=== PATIENT | female | born 1940 | race Caucasian/White ===

== ENCOUNTER 2020-09-19 19:44 | Emergency (ER) | payer MEDICARE, OTHER ==
--- NOTE | 2020-09-19 20:40 | ED ---
General Adult HPI - General Source: patient, family Mode of arrival: wheelchair Limitations: no limitations <Gage Bustillo Serafin - Last Filed: 09/19/20 21:01> <Catalina Fitzgerald Shyanne - Last Filed: 09/19/20 23:41> - General Chief complaint: Urogenital Stated complaint: UTI Time Seen by Provider: 09/19/20 20:33 - History of Present Illness Initial comments: Dictation was produced using [employer] dictation software. please excuse any grammatical, word or spelling errors. This patient was cared for during a federal and state declared state of emergency secondary to Covid 19 Chief Complaint: 80-year-old female presents with urinary retention History of Present Illness: Patient is an 80-year-old female she has past medical history of dyslipidemia hypertension myocardial infarction. Proximal one month ago she had back surgery. The last 3-4 days patient has been struggling with urinary frequency. States that she's been also having dysuria at that time. She was seen at the emergency department in [facility]. She was found to have a urinary tract infection. Although last to 3 days she's been having urinary frequency however today she was having urinary retention. Patient states she last urinated 10 hours ago. She feels like she needs to urinate however is unable to do so. Denies any fever, chills or night sweats. She denies any abdominal or back pain. Besides some paresthesias on the soles of her feet she has no other neurologic issues since the surgery. She denies any significant back pain at this time. No saddle anesthesia. The ROS documented in this emergency department record has been reviewed and confirmed by me. Those systems with pertinent positive or negative responses have been documented in the HPI. All other systems are other negative and/or noncontributory. PHYSICAL EXAM: General Impression: Alert and oriented x3, not in acute distress HEENT: Normocephalic atraumatic, extra-ocular movements intact, pupils equal and reactive to light bilaterally, mucous membranes moist. Cardiovascular: Heart regular rate and rhythm Chest: Able to complete full sentences, no retractions, no tachypnea Abdomen: abdomen soft, no impressive superpubic fullness however there is some tenderness to the suprapubic area, non-distended, no organomegaly Musculoskeletal: Pulses present and equal in all extremities, no peripheral edema Motor: no focal deficits noted Neurological: CN II-XII grossly intact, no focal motor or sensory deficits noted, no saddle anesthesia Skin: Intact with no visualized rashes Psych: Normal affect and mood ED course: 80 y Old female presents with urinary retention. Vital signs upon arrival are within acceptable limits. Patient care signed out to Dr. Fitzgerald (Gage Bustillo) - Related Data Home Medications Medication Instructions Recorded Confirmed ALPRAZolam [Xanax] 0.125 mg PO DAILY PRN 09/19/20 09/19/20 Acetaminophen [Tylenol Arthritis] 650 mg PO Q8H PRN 09/19/20 09/19/20 Aspirin EC [Ecotrin Low Dose] 81 mg PO HS 09/19/20 09/19/20 Atorvastatin Calcium [Lipitor] 20 mg PO HS 09/19/20 09/19/20 Calcium Carbonate/Vitamin D3 1 tab PO DAILY 09/19/20 09/19/20 [Calcium 500-Vit D3 200 Tablet] Carbidopa-Levodopa 25-100 mg 2 tab PO TID 09/19/20 09/19/20 [Sinemet 25-100] Entacapone [Comtan] 200 mg PO TID 09/19/20 09/19/20 Gabapentin [Neurontin] 100 mg PO DAILY 09/19/20 09/19/20 Ipratropium [place] [Ipratropium 2 sprays EA NOSTRIL BID 09/19/20 09/19/20 [place] 0.03%] L.acidoph,Paracasei, B.lactis 1 cap PO DAILY 09/19/20 09/19/20 [Probiotic] Levothyroxine Sodium [Synthroid] 125 mcg PO DAILY 09/19/20 09/19/20 Metoprolol Tartrate [Lopressor] 12.5 mg PO BID 09/19/20 09/19/20 Multivitamins, Thera [Multivitamin 1 tab PO DAILY 09/19/20 09/19/20 (formulary)] Pantoprazole [Protonix] 40 mg PO BID 09/19/20 09/19/20 amLODIPine [Norvasc] 10 mg PO HS 09/19/20 09/19/20 polyethylene glycoL 3350 [Miralax] 17 gm PO DAILY PRN 12/04/20 12/04/20 Allergies Allergy/AdvReac Type Severity Reaction Status Date / Time amoxicillin Allergy Itching Verified 09/19/20 21:54 Review of Systems ROS Other: All systems not noted in ROS Statement are negative. <Gage Bustillo - Last Filed: 09/19/20 21:01> ROS Other: All systems not noted in ROS Statement are negative. <Catalina Fitzgerald - Last Filed: 09/19/20 23:41> ROS Statement: Those systems with pertinent positive or pertinent negative responses have been documented in the HPI. Past Medical History Past Medical History: Hyperlipidemia, Hypertension, Myocardial Infarction ([place]) Past Surgical History: Coronary Bypass/CABG Additional Past Surgical History / Comment(s): Back surgery 08/17/20 Smoking Status: Never smoker Past Alcohol Use History: None Reported Past Drug Use History: None Reported <Gage Bustillo - Last Filed: 09/19/20 21:01> General Exam Limitations: no limitations <Gage Bustillo - Last Filed: 09/19/20 21:01> Course Vital Signs 09/19/20 09/19/20 09/19/20 19:46 21:13 22:00 Temperature 97.9 F Pulse Rate 58 L 68 84 Respiratory 16 19 17 Rate Blood Pressure 109/74 160/83 153/74 O2 Sat by Pulse 99 100 98 Oximetry 09/19/20 22:52 Temperature 98.7 F Pulse Rate 85 Respiratory 19 Rate Blood Pressure 150/86 O2 Sat by Pulse 98 Oximetry Medical Decision Making - Lab Data Result diagrams: 09/19/20 20:24 09/19/20 20:24 <Catalina Fitzgerald - Last Filed: 09/19/20 23:41> - Medical Decision Making Patient was signed out to me by Dr. Bustillo. I reviewed the patient's laboratory studies. Evaluated the patient myself. She does present with recent urinary incontinence x several weeks and urinary retention x 1 day. No saddle anesthesia, lower extremity weakness or bowel issues. With recent history of back surgery the patient's MRI was obtained from [facility]. Study was performed on September 12. Patient was having urinary incontinence at that time. Impressions from the study demonstrate no evidence of spinal canal elin nosis. Cauda equina is normal caliber and configuration. Results are discussed with the patient. Bladder scan was performed which measured 180 mL of urine however straight cath had a return of 400 mL. Because this, a Bojorquez was placed. Patient will be discharged home with Bojorquez. She does have upgoing follow up with her urologist, Dr. Miller. Recommend she call Tuesday to make a sooner appointment. Take Tylenol for any discomfort. Return to the emergency room for any new or worsening symptoms. Patient was discharged in stable condition (Catalina Fitzgerald) - Lab Data Lab Results 09/19/20 09/19/20 09/19/20 Range/Units 20:24 20:24 21:35 WBC 4.8 (3.8-10.6) k/uL RBC 4.34 (3.80-5.40) m/uL Hgb 11.7 (11.4-16.0) gm/dL Hct 37.7 (34.0-46.0) % MCV 86.8 (80.0-100.0) fL MCH 27.0 (25.0-35.0) pg MCHC 31.1 (31.0-37.0) g/dL RDW 14.0 (11.5-15.5) % Plt Count 193 (150-450) k/uL MPV 8.7 Neutrophils % (Manual) 63 % Lymphocytes % (Manual) 27 % Monocytes % (Manual) 10 % Neutrophils # (Manual) 3.02 (1.3-7.7) k/uL Lymphocytes # (Manual) 1.30 (1.0-4.8) k/uL Monocytes # (Manual) 0.48 (0-1.0) k/uL Nucleated RBCs 0 (0-0) /100 WBC Manual Slide Review Performed RBC Morphology Normal Sodium 132 L (137-145) mmol/L Potassium 4.0 (3.5-5.1) mmol/L Chloride 101 (98-107) mmol/L Carbon Dioxide 27 (22-30) mmol/L Anion Gap 4 mmol/L BUN 21 H (7-17) mg/dL Creatinine 0.85 (0.52-1.04) mg/dL Est GFR (CKD-EPI)AfAm 75 (>60 ml/min/1.73 sqM) Est GFR (CKD-EPI)NonAf 65 (>60 ml/min/1.73 sqM) Glucose 96 (74-99) mg/dL Calcium 9.4 (8.4-10.2) mg/dL Urine Color Dark Yellow Urine Appearance Clear (Clear) Urine pH 5.5 (5.0-8.0) Ur Specific [place] 1.015 (1.001-1.035) Urine Protein Negative (Negative) Urine Glucose (UA) Negative (Negative) Urine Ketones Negative (Negative) Urine Blood Negative (Negative) Urine Nitrite Negative (Negative) Urine Bilirubin Negative (Negative) Urine Urobilinogen <2.0 (<2.0) mg/dL Ur Leukocyte Esterase Negative (Negative) Disposition <Gage Bustillo - Last Filed: 09/19/20 21:01> Is patient prescribed a controlled substance at d/c from ED?: No Time of Disposition: 23:36 <Catalina Fitzgerald - Last Filed: 09/19/20 23:41> Clinical Impression: Urinary retention Disposition: HOME SELF-CARE Condition: Stable Instructions (If sedation given, give patient instructions): Acute Urinary Retention in Women (ED) Additional Instructions: Please follow-up with your urologist for Bojorquez removal and PCP. Return to the emergency room for any new or worsening symptoms Referrals: Nonstaff,Physician [REFERRING] - 1-2 days Tess Miller DO [REFERRING] - 1-2 days
[2020-09-19 21:14] LABS: Calcium 9.4 mg/dL (8.4-10.2)
[2020-09-19 21:41] LABS: HCT 37.7 % (34.0-46.0); HGB 11.7 gm/dL (11.4-16.0); MCHC 31.1 g/dL (31.0-37.0); MCV 86.8 fL (80.0-100.0); Mean Platelet Volume 8.7; Platelet Count 193 k/uL (150-450); RBC 4.34 m/uL (3.80-5.40); WBC 4.8 k/uL (3.8-10.6)
[2020-09-19 21:42] LABS: Appearance,Urine Clear (Clear); Bilirubin,Urine Negative (Negative); Blood,Urine Negative (Negative); Color,Urine Dark Yellow; Glucose,Urine (UA) Negative (Negative); Ketones,Urine Negative (Negative); Leukocyte Esterase,Urine Negative (Negative); Nitrite,Urine Negative (Negative); PH, Urine 5.5 (5.0-8.0); Protein,Urine Negative (Negative); Specific Gravity,Urine 1.015 (1.001-1.035); Urobilinogen,Urine <2.0 mg/dL (<2.0)
[2020-09-19 22:00] LABS: Monocytes # (M) 0.48 k/uL (0-1.0); Neutrophils # (M) 3.02 k/uL (1.3-7.7); Neutrophils % (M) 63 %; Nucleated Red Blood Cells 0 /100 WBC (0-0); Total Cells Counted 100
[2020-09-19 22:56] VITALS: PULSE 85
[2020-09-19] MEDS ORDERED: LORazepam 2 MG/ML INJ IV STA (23:19)
[2020-09-20 00:50] VITALS: BP 157/78; RESP 83; TEMP 98
== END 2020-09-20 00:20 | disposition home or self-care (01) ==
LOC: EC 19:44
DX: R33.9 Retention of urine, unspecified (principal); R32 Unspecified urinary incontinence; E78.5 Hyperlipidemia, unspecified; I10 Essential (primary) hypertension; I25.2 Old myocardial infarction; Z79.899 Other long term (current) drug therapy; Z88.0 Allergy status to penicillin; Z95.1 Presence of aortocoronary bypass graft
CPT/HCPCS: 51798; 36415; 80048; 85025; 81003; 99284; 96374; 51702; J2060

== ENCOUNTER 2020-09-23 21:29 | Emergency (ER) | payer MEDICARE, OTHER ==
[2020-09-23 22:05] VITALS: RESP 18
[2020-09-23 23:42] LABS: Appearance,Urine Clear (Clear); Bacteria,Urine Rare /hpf; Bilirubin,Urine Negative (Negative); Blood,Urine Small (Negative); Budding Yeast,Urine Occasional /hpf; Color,Urine Dark Yellow; Glucose,Urine (UA) Negative (Negative); Hyaline Casts,Urine 23 /lpf (0-2); Ketones,Urine Negative (Negative); Leukocyte Esterase,Urine Trace (Negative); Mucus,Urine Few /hpf; Nitrite,Urine Negative (Negative); PH, Urine 5.5 (5.0-8.0); Protein,Urine Trace (Negative); RBC,Urine 10 /hpf (0-5); Specific Gravity,Urine 1.011 (1.001-1.035); Urobilinogen,Urine <2.0 mg/dL (<2.0); WBC,Urine 4 /hpf (0-5)
[2020-09-23 23:58] VITALS: PULSE 76
--- NOTE | 2020-09-24 00:03 | ED ---
Female Urogenital HPI - General Chief complaint: Urogenital Stated complaint: Revisit Catheter Issue Time Seen by Provider: 09/23/20 22:12 Source: patient Mode of arrival: wheelchair Limitations: no limitations - History of Present Illness Initial comments: Patient is an 80-year-old female presenting to the emergency Department with complaints of urinary retention since today. Patient states she had a catheter placed 4 days ago due to urinary retention. She states she had a follow-up with her urologist today who states they were going to leave it in for another week and reevaluate. Patient had a back surgery performed one month ago and has been having issues with urinary frequency and retention since then. She has had a recent lumbar MRI to rule out cauda equina or any other serious conditions, this was stable. She has been seeing her urologist, Dr. Miller. She denies any fever, nausea or vomiting, no abdominal pain just a pressure feeling. She denies any numbness and tingling into her extremities. She has a stable gait. He denies any chest pain or shortness of breath. Patient has no further complaints at this time. Upon arrival to the ER, her vitals are stable. - Related Data Home Medications Medication Instructions Recorded Confirmed ALPRAZolam [Xanax] 0.125 mg PO DAILY PRN 09/19/20 09/23/20 Acetaminophen [Tylenol Arthritis] 650 mg PO Q8H PRN 09/19/20 09/23/20 Aspirin EC [Ecotrin Low Dose] 81 mg PO HS 09/19/20 09/23/20 Atorvastatin Calcium [Lipitor] 20 mg PO HS 09/19/20 09/23/20 Calcium Carbonate/Vitamin D3 1 tab PO DAILY 09/19/20 09/23/20 [Calcium 500-Vit D3 200 Tablet] Carbidopa-Levodopa 25-100 mg 2 tab PO TID 09/19/20 09/23/20 [Sinemet 25-100] Entacapone [Comtan] 200 mg PO TID 09/19/20 09/23/20 Gabapentin [Neurontin] 100 mg PO DAILY 09/19/20 09/23/20 Ipratropium [place] [Ipratropium 2 sprays EA NOSTRIL BID 09/19/20 09/23/20 [place] 0.03%] L.acidoph,Paracasei, B.lactis 1 cap PO DAILY 09/19/20 09/23/20 [Probiotic] Levothyroxine Sodium [Synthroid] 125 mcg PO DAILY 09/19/20 09/23/20 Metoprolol Tartrate [Lopressor] 12.5 mg PO BID 09/19/20 09/23/20 Multivitamins, Thera [Multivitamin 1 tab PO DAILY 09/19/20 09/23/20 (formulary)] Pantoprazole [Protonix] 40 mg PO BID 09/19/20 09/23/20 amLODIPine [Norvasc] 10 mg PO HS 09/19/20 09/23/20 polyethylene glycoL 3350 [Miralax] 17 gm PO DAILY PRN 09/19/20 09/23/20 Allergies Allergy/AdvReac Type Severity Reaction Status Date / Time amoxicillin Allergy Itching Verified 09/23/20 23:07 Review of Systems ROS Statement: Those systems with pertinent positive or pertinent negative responses have been documented in the HPI. ROS Other: All systems not noted in ROS Statement are negative. Past Medical History Past Medical History: Hyperlipidemia, Hypertension, Myocardial Infarction ([place]) Past Surgical History: Coronary Bypass/CABG Additional Past Surgical History / Comment(s): Back surgery 08/17/20 Past Psychological History: No Psychological Hx Reported Smoking Status: Never smoker Past Alcohol Use History: None Reported Past Drug Use History: None Reported General Exam - General Exam Comments Initial Comments: GENERAL: Patient is well-developed and well-nourished. Patient is nontoxic and in no acute distress. HEAD: Atraumatic, normocephalic. EYES: Pupils equal round and reactive to light, extraocular movements intact, sclera anicteric, conjunctiva are normal. Eyelids were unremarkable. ENT: TMs normal, nares patent, oropharynx clear without exudates. Moist mucous membranes. NECK: Normal range of motion, supple without lymphadenopathy or JVD. LUNGS: Unlabored respirations. Breath sounds clear to auscultation bilaterally and equal. No wheezes rales or rhonchi. HEART: Regular rate and rhythm without murmurs, rubs or gallops. ABDOMEN: Soft, nontender, normoactive bowel sounds. No guarding, no rebound. No masses appreciated. : Deferred MUSCULOSKELETAL: Normal extremities with adequate strength and normal range of motion, no pitting or edema. No clubbing or cyanosis. NEUROLOGICAL: Patient is alert and oriented x 3. Motor and sensory are also intact. Cranial nerves II through XII grossly intact. Symmetrical smile. Normal speech, normal gait. PSYCH: Normal mood, normal affect. SKIN: Warm, Dry, normal turgor, no rashes or lesions noted. Limitations: no limitations Course Vital Signs 09/23/20 09/23/20 09/24/20 22:00 22:20 00:26 Temperature 98.3 F 98.4 F Pulse Rate 74 76 76 Respiratory 18 18 18 Rate Blood Pressure 145/65 144/65 147/65 O2 Sat by Pulse 99 99 99 Oximetry Medical Decision Making - Medical Decision Making Patient is a 80-year-old female here with complaints of urinary retention since this morning. Bladder scan today reveals only 60 miles, during scan, catheter was draining a significant amount, almost 200mL. She states she had some relief of her lower abdominal pressure. Urine shows no evidence of infection. The catheter was checked and seems to be draining appropriately, there is no leaking at this time. I discussed with patient and her grandson that if she starts to have that pressure feeling again to go head and apply some pressure to her lower abdomen to help drain the bladder. She can follow up with her urologist as discussed. She is stable for discharge. She is in agreement with this plan of care. Return parameters were discussed with the patient and she verbalized understanding. Case discussed with Dr. Dodson. - Lab Data Lab Results 09/23/20 Range/Units 23:20 Urine Color Dark Yellow Urine Appearance Clear (Clear) Urine pH 5.5 (5.0-8.0) Ur Specific [place] 1.011 (1.001-1.035) Urine Protein Trace H (Negative) Urine Glucose (UA) Negative (Negative) Urine Ketones Negative (Negative) Urine Blood Small H (Negative) Urine Nitrite Negative (Negative) Urine Bilirubin Negative (Negative) Urine Urobilinogen <2.0 (<2.0) mg/dL Ur Leukocyte Esterase Trace H (Negative) Urine RBC 10 H (0-5) /hpf Urine WBC 4 (0-5) /hpf Urine Bacteria Rare H (None) /hpf Hyaline Casts 23 H (0-2) /lpf Urine Mucus Few H (None) /hpf Urine Yeast (Budding) Occasional H (None) /hpf Disposition Clinical Impression: Urinary retention Disposition: HOME SELF-CARE Condition: Stable Instructions (If sedation given, give patient instructions): Acute Urinary Retention in Women (ED) Additional Instructions: Please return to the Emergency Department if symptoms worsen or any other concerns. Follow-up with your urologist as discussed. Is patient prescribed a controlled substance at d/c from ED?: No Referrals: Nonstaff,Physician [Primary Care Provider] - 1-2 days
[2020-09-24 00:41] VITALS: BP 147/65; TEMP 98.4
== END 2020-09-24 00:26 | disposition home or self-care (01) ==
LOC: EC 21:29
DX: R33.9 Retention of urine, unspecified (principal); E78.5 Hyperlipidemia, unspecified; I10 Essential (primary) hypertension; I25.2 Old myocardial infarction; Z79.82 Long term (current) use of aspirin; Z79.899 Other long term (current) drug therapy; Z79.890 Hormone replacement therapy; Z88.0 Allergy status to penicillin; Z96.0 Presence of urogenital implants
CPT/HCPCS: 51798; 81001; 99283

== ENCOUNTER 2020-12-22 13:24 | Emergency (ER) | payer MEDICARE, OTHER ==
--- NOTE | 2020-12-22 15:39 | ED ---
Female Urogenital HPI - General Chief complaint: Urogenital Stated complaint: Female Time Seen by Provider: 12/22/20 15:15 Source: patient Mode of arrival: wheelchair Limitations: no limitations - History of Present Illness Initial comments: Patient is an 80-year-old female, his history of Parkinson's, hypertension, presenting to the emergency Department with complaints of difficulty with urination since this morning. Patient states yesterday she had increase in frequency but ever since this morning she has not been able to go. She has had this issue in the past a few months ago, had a catheter for about a week, saw urology, was removed and she has not had a problem since. She denies any fever, chills, abdominal pain, nausea or vomiting. She states she does have some lower abdominal pressure. Denies chest pain or shortness of breath. She has no further complaints at this time. Upon arrival to the ER, her vitals are stable. - Related Data Home Medications Medication Instructions Recorded Confirmed ALPRAZolam [Xanax] 0.125 mg PO DAILY PRN 09/19/20 09/23/20 Acetaminophen [Tylenol Arthritis] 650 mg PO Q8H PRN 09/19/20 09/23/20 Aspirin EC [Ecotrin Low Dose] 81 mg PO HS 09/19/20 09/23/20 Atorvastatin Calcium [Lipitor] 20 mg PO HS 09/19/20 09/23/20 Calcium Carbonate/Vitamin D3 1 tab PO DAILY 09/19/20 09/23/20 [Calcium 500-Vit D3 200 Tablet] Carbidopa-Levodopa 25-100 mg 2 tab PO TID 09/19/20 09/23/20 [Sinemet 25-100] Entacapone [Comtan] 200 mg PO TID 09/19/20 09/23/20 Gabapentin [Neurontin] 100 mg PO DAILY 09/19/20 09/23/20 Ipratropium [place] [Ipratropium 2 sprays EA NOSTRIL BID 09/19/20 09/23/20 [place] 0.03%] L.acidoph,Paracasei, B.lactis 1 cap PO DAILY 09/19/20 09/23/20 [Probiotic] Levothyroxine Sodium [Synthroid] 125 mcg PO DAILY 09/19/20 09/23/20 Metoprolol Tartrate [Lopressor] 12.5 mg PO BID 09/19/20 09/23/20 Multivitamins, Thera [Multivitamin 1 tab PO DAILY 09/19/20 09/23/20 (formulary)] Pantoprazole [Protonix] 40 mg PO BID 09/19/20 09/23/20 amLODIPine [Norvasc] 10 mg PO HS 09/19/20 09/23/20 polyethylene glycoL 3350 [Miralax] 17 gm PO DAILY PRN 09/19/20 09/23/20 Previous Rx's Medication Instructions Recorded Cephalexin [Keflex] 500 mg PO BID 5 Days #10 cap 12/22/20 Allergies Allergy/AdvReac Type Severity Reaction Status Date / Time amoxicillin Allergy Itching Verified 09/23/20 23:07 Review of Systems ROS Statement: Those systems with pertinent positive or pertinent negative responses have been documented in the HPI. ROS Other: All systems not noted in ROS Statement are negative. Past Medical History Past Medical History: Hyperlipidemia, Hypertension, Myocardial Infarction ([place]) Past Surgical History: Coronary Bypass/CABG Additional Past Surgical History / Comment(s): Back surgery 08/17/20 Past Psychological History: No Psychological Hx Reported Smoking Status: Never smoker Past Alcohol Use History: None Reported Past Drug Use History: None Reported General Exam - General Exam Comments Initial Comments: GENERAL: Patient is well-developed and well-nourished. Patient is nontoxic and in no acute distress. HEAD: Atraumatic, normocephalic. EYES: Pupils equal round and reactive to light, extraocular movements intact, sclera anicteric, conjunctiva are normal. Eyelids were unremarkable. ENT: TMs normal, nares patent, oropharynx clear without exudates. Moist mucous membranes. NECK: Normal range of motion, supple without lymphadenopathy or JVD. LUNGS: Unlabored respirations. Breath sounds clear to auscultation bilaterally and equal. No wheezes rales or rhonchi. HEART: Regular rate and rhythm without murmurs, rubs or gallops. ABDOMEN: Soft, pressure with palpation suprapubic area, no other areas of pain, normoactive bowel sounds. No guarding, no rebound. No masses appreciated. : Deferred MUSCULOSKELETAL: Normal extremities with adequate strength and normal range of motion, no pitting or edema. No clubbing or cyanosis. NEUROLOGICAL: Patient is alert and oriented x 3. Motor and sensory are also intact. Cranial nerves II through XII grossly intact. Symmetrical smile. Normal speech, normal gait. PSYCH: Normal mood, normal affect. SKIN: Warm, Dry, normal turgor, no rashes or lesions noted. Limitations: no limitations Course Vital Signs 12/22/20 12/22/20 12/22/20 13:51 17:45 18:05 Temperature 98.3 F 98.2 F Pulse Rate 69 67 Respiratory 18 16 Rate Blood Pressure 105/65 160/78 O2 Sat by Pulse 96 97 Oximetry Medical Decision Making - Medical Decision Making Patient is an 80-year-old female here with complaints of urinary retention since this morning. She had the same issue about 3 months ago, had a catheter for ab out a week and then it was removed has not had a problem since. No fevers or chills. She did have urinary frequency yesterday. Bladder scan reveals over 400 mL, patient still unable to urinate on her own. Bojorquez catheter was placed, draining appropriately. UA shows large leukocyte esterase, many wbc's and bacteria. Urine culture is pending. Patient will be given 1 g Rocephin here in the ER and started on Keflex. We will keep catheter in place, she'll follow up with a urologist. Patient is stable for discharge. Patient is in agreement with this plan of care. Return parameters were discussed with the patient and they verbalized understanding. Case discussed with Dr. Thomas. - Lab Data Lab Results 12/22/20 Range/Units 16:50 Urine Color Yellow Urine Appearance Cloudy H (Clear) Urine pH 6.0 (5.0-8.0) Ur Specific [place] 1.008 (1.001-1.035) Urine Protein Negative (Negative) Urine Glucose (UA) Negative (Negative) Urine Ketones Negative (Negative) Urine Blood Trace H (Negative) Urine Nitrite Negative (Negative) Urine Bilirubin Negative (Negative) Urine Urobilinogen <2.0 (<2.0) mg/dL Ur Leukocyte Esterase Large H (Negative) Urine RBC 3 (0-5) /hpf Urine WBC 120 H (0-5) /hpf Ur Squamous Epith Cells <1 (0-4) /hpf Urine Bacteria Rare H (None) /hpf Hyaline Casts 1 (0-2) /lpf Urine Mucus Rare H (None) /hpf Disposition Clinical Impression: Urinary tract infection, Urinary retention Disposition: HOME SELF-CARE Condition: Stable Instructions (If sedation given, give patient instructions): Urinary Tract Infection in Women (ED) Additional Instructions: Please return to the Emergency Department if symptoms worsen or any other concerns. Take antibiotic as prescribed. Please follow up with urology as discussed. Prescriptions: Cephalexin [Keflex] 500 mg PO BID 5 Days #10 cap Is patient prescribed a controlled substance at d/c from ED?: No Referrals: Nonstaff,Physician [Primary Care Provider] - 1-2 days
[2020-12-22 17:02] LABS: Appearance,Urine Cloudy (Clear); Bacteria,Urine Rare /hpf; Bilirubin,Urine Negative (Negative); Blood,Urine Trace (Negative); Color,Urine Yellow; Glucose,Urine (UA) Negative (Negative); Hyaline Casts,Urine 1 /lpf (0-2); Ketones,Urine Negative (Negative); Leukocyte Esterase,Urine Large (Negative); Mucus,Urine Rare /hpf; Nitrite,Urine Negative (Negative); Protein,Urine Negative (Negative); RBC,Urine 3 /hpf (0-5); Specific Gravity,Urine 1.008 (1.001-1.035); Squamous Epithelial Cell,Urine <1 /hpf (0-4); Urobilinogen,Urine <2.0 mg/dL (<2.0); WBC,Urine 120 /hpf (0-5)
[2020-12-22] MEDS ORDERED: ALPRAZolam 0.25 MG TAB PO STA (17:14)
[2020-12-22] MEDS ORDERED: cefTRIAXone 1,000 MG VIAL (IM USE) IM STA (17:15)
[2020-12-22 17:46] VITALS: BP 160/78; PULSE 67; RESP 16
[2020-12-22 18:07] VITALS: TEMP 98.2
== END 2020-12-22 18:05 | disposition home or self-care (01) ==
LOC: EC 13:24
DX: N39.0 Urinary tract infection, site not specified (principal); E78.5 Hyperlipidemia, unspecified; I10 Essential (primary) hypertension; I25.2 Old myocardial infarction; Z95.1 Presence of aortocoronary bypass graft
CPT/HCPCS: 81001; 87086; 87077; 87186; 99284; 96372; J0696

== ENCOUNTER → 2021-03-24 | Outpatient (CLI) | payer MEDICARE, OTHER ==
[2021-03-25 05:00] LABS: Protein, Total 6.5 g/dL (6.2-8.2)
[2021-03-25 05:42] LABS: Creatine Kinase 90 U/L (26-186)
[2021-03-25 15:59] LABS: Albumin 4.03 g/dL (3.80-4.90); Gamma Globulin 0.89 g/dL (0.70-1.50)
== END | disposition home or self-care (01) ==
LOC: LABWHC1 16:14
PROVIDERS: ATTEND Psychiatry & Neurology Neurology
DX: G62.9 Polyneuropathy, unspecified (principal); R53.1 Weakness; R26.89 Other abnormalities of gait and mobility; R73.9 Hyperglycemia, unspecified
CPT/HCPCS: 36415; 82550; 82607; 82747; 83036; 84165; 84439; 84443; 85652; 86618

== ENCOUNTER → 2021-03-25 | Outpatient (CLI) | payer MEDICARE, OTHER ==
--- NOTE | 2021-03-25 20:47 | CONS ---
CONSULTATION DATE OF SERVICE: 03/25/2021 81-year-old lady has been evaluated in the sleep center for possible obstructive sleep apnea-hypopnea syndrome. HISTORY OF PRESENT ILLNESS/SLEEP WAKE EVALUATION: SLEEP SCHEDULE: Patient's usual sleep schedule from 10 or 11 p.m. until 7-9 a.m. FALLING ASLEEP: Sometimes she has problems with falling asleep. Has TV set in the bedroom. DURING SLEEP: She sleeps in different position. She snores, grinding her teeth. Has episodes of panic attacks, palpitations, restless legs. Patient awakes up from sleep four times with episodes of gasping for air and nocturia. No history of hypnagogic hallucinations, sleep paralysis or cataplexy. DURING THE DAY/SLEEP WAKE EVALUATION: In the morning, she wakes up tired with difficulties paying attention, has problems with the memory, concentration irritability, depression and anxiety. Almo Sleepiness Scale is 3. PAST MEDICAL HISTORY: Positive for hypertension, coronary artery disease, hyperlipidemia, headaches, skin cancer over the face, treated surgically, acid reflux, hypothyroidism, restless leg symptoms recently decreasing sensation in the legs. PAST SURGICAL HISTORY: Tonsillectomy, appendectomy, right wrist surgery, spinal fusion, L4-21 July 2020. Cataract surgery 2009. MEDICATION: Synthroid 125 mcg once a day and Sinemet 25 mg 1 tablets 3 times a day, sertraline 25 mg once a day, Entacapone 200 mg three times a day, lorazepam 1/2 tablet once a day, metoprolol 25 mg 1/2 of the tablet in the morning and 1/2 of the tablet in the afternoon. Pantoprazole 40 mg twice a day, famotidine , 20 mg once a day. Ipratropium nasal spray twice a day, atorvastatin 20 mg once a day, baby aspirin 81 mg once a day, Benefiber 2 spoons once a day. SOCIAL HISTORY: Negative for smoking or using alcohol. FAMILY HISTORY: Hypertension. REVIEW OF SYSTEMS: Multiple awakenings from sleep, decreasing sensations in the legs. PHYSICAL EXAMINATION: GENERAL: lady without distress in a wheelchair. BP 163/80, HR 70, RR 15, height 5 feet 1/2 inch. Temperature 94.8, oxygen saturation at room air 93%. Oropharynx extremely low position of soft palate. Mallampati IV. NECK: 13-1/2 inches in circumference. Neck supple, no JVD. Thyroid is not palpable. LUNGS: Clear to percussion and to auscultation. Good air exchange. No wheezing or rhonchi. HEART: S1, S2 regular. No murmurs, gallops, or rubs. ABDOMEN: Soft and nontender. Bowel sounds are present. No organomegaly appreciated. EXTREMITIES: No clubbing or cyanosis. RESEARCH COMPUTING SPECIALIST: Awake, alert, and oriented X3. Cranial nerves 2 to 7 intact. There is no fasciculation or atrophy noted. Decreasing sensation in the lower legs. IMPRESSION: 1. Snoring, multiple awakenings from sleep, extremely low position of soft palate, obstructive sleep apnea-hypopnea syndrome. 2. Coronary artery disease, status post coronary artery bypass grafting. 3. Hypertension. 4. Hyperlipidemia. 5. History of headaches. 6. History of Parkinson's disease. 7. Acid reflux. 8. Hypothyroidism. 9. Restless leg symptoms. 10.History of back problems, status post spinal fusion, L4, L5 presently, some decrease in sensation in the legs. 11.Status post tonsillectomy. 12.Status post appendectomy. 13.Status post right wrist surgery. 14.Status post cataract surgery. PLAN: 1. Polysomnography for evaluation of patient's breathing during sleep. 2. CPAP/BiPAP titration if sleep study confirms obstructive sleep apnea-hypopnea syndrome. 3. Preferable position during sleep on the side. 4. No driving if patient feels any sleepiness. 5. I will see patient for follow up visit to explain results of testing and following plan. Thank you very much for referring this patient for consultation. Sincerely, Andrés Jauregui MD, PhD, FAASM Diplomat of [place] [employer] [place] [employer] [facility] [place] MMODL / IJN: [id number] /
== END ==
LOC: SLEEP 13:09
PROVIDERS: ATTEND Internal Medicine
DX: G47.33 Obstructive sleep apnea (adult) (pediatric) (principal); I25.10 Atherosclerotic heart disease of native coronary artery without angina pectoris; I10 Essential (primary) hypertension; K21.9 Gastro-esophageal reflux disease without esophagitis; E78.5 Hyperlipidemia, unspecified; E03.9 Hypothyroidism, unspecified; Z90.49 Acquired absence of other specified parts of digestive tract; Z95.1 Presence of aortocoronary bypass graft; G25.81 Restless legs syndrome; Z98.1 Arthrodesis status; Z90.09 Acquired absence of other part of head and neck; Z98.890 Other specified postprocedural states; Z98.49 Cataract extraction status, unspecified eye; Z86.69 Personal history of other diseases of the nervous system and sense organs; Z79.899 Other long term (current) drug therapy; Z79.82 Long term (current) use of aspirin; Z88.1 Allergy status to other antibiotic agents
CPT/HCPCS: 99211